=== PATIENT | female | born 1965 | race American Indian/Alaskan Native ===

== ENCOUNTER 2018-02-20 10:16 | Inpatient (IN) | payer MEDICARE ==
[2018-02-20 10:17] VITALS: BMI 40.7
[2018-02-20 11:31] LABS: ACETAMINOPHEN < 10.0 ug/mL (10.0-30.0); ALB/GLOB RATIO 1.1 (1.0-2.1); ALBUMIN 4.5 g/dL (3.5-5.0); ALT/SGPT 33 U/L (9-52); AST/SGOT 34 U/L (14-36); BLOOD UREA NITROGEN 14 mg/dL (7-17); CALCIUM 9.5 mg/dl (8.6-10.4); GFR NON-AFRICAN AMERICAN > 60; SALICYLATE < 1.0 mg/dL 1
--- NOTE | 2018-02-20 11:39 | C.PDOC ---
History Of Present Illness 52yo [place]ron[place] F PMH HTN, DM, CKD3, systemic lupus, asthma, fibromyalgia (mixed connective tissue dz), major depression, c/o 2 weeks of tearful behavior started having SI yesterday. Has had multiple SI in the past with attempts x2, last at beginning of 2017. Major stressor is medical problems since "new diagnosis every doctor visit". Is taking Rx as prescribed. Regularly sees Dr. South (retiring, switching to Dr. Akins), next appointment is next month. SocHx: quit cigs - 2012, denies ever EtOH, illicit drugs <Lyndsey Fernando - Last Filed: 02/20/18 16:50> History Per: Patient Modifying Factor(s): None Severity: Severe Associated Symptoms: Depression, Suicidal Thoughts. denies: Suicidal Plan <Lyndsey Fernando - Last Filed: 02/20/18 16:50> <Adiel Valderrama DO - Last Filed: 02/20/18 18:24> Time Seen by Provider: 02/20/18 11:35 Chief Complaint (Nursing): Psychiatric Evaluation Past Medical History - Medical History PMH: Depression, Fibromyalgia, Osteoporosis Denies: Diabetes, Hepatitis, HIV, HTN, Seizures, Sexually Transmitted Disease Family History: States: Unknown Family Hx - Social History Hx Tobacco Use: No Hx Alcohol Use: No Hx Substance Use: No - Immunization History Hx Tetanus Toxoid Vaccination: (unk) Hx Influenza Vaccination: Yes Hx Pneumococcal Vaccination: No <Lyndsey Fernando - Last Filed: 02/20/18 16:50> Vital Signs: Last Vital Signs Temp 98.6 F 02/20/18 10:51 Pulse 78 02/20/18 10:51 Resp 22 02/20/18 10:51 BP 120/66 02/20/18 10:51 Pulse Ox 99 02/20/18 10:51 <Adiel Valderrama DO - Last Filed: 02/20/18 18:24> Review Of Systems Except As Marked, All Systems Reviewed And Found Negative. Psych: Positive for: Anxiety, Depression, Suicidal ideation. Negative for: Withdrawal <Lyndsey Fernando - Last Filed: 02/20/18 16:50> Physical Exam - Physical Exam Appears: Unkempt, Agitated (uncontrollably crying) Skin: Dry, Pale Head: Atraumatic, Normacephalic Eye(s): bilateral: PERRL, EOMI, Other (injected from crying) Ear(s): Bilateral: Normal Nose: Normal Oral Mucosa: Dry Throat: Normal Neck: Normal Cardiovascular: Rhythm Regular, Rhythm Irregular, No Murmur Respiratory: Normal Breath Sounds Gastrointestinal/Abdominal: Normal Exam, Bowel Sounds, Soft, No Tenderness Pulses: Left Radial: Normal, Right Radial: Normal, Left Dorsalis Pedis: Normal, Right Dorsalis Pedis: Normal Neurological/Psych: Oriented x3, Eyes Open With Command Pain Response: Withdraws With Pain <Lyndsey Fernando - Last Filed: 02/20/18 16:50> ED Course And Treatment - Laboratory Results Result Diagrams: 02/20/18 11:08 02/20/18 11:08 <Lyndsey Fernando - Last Filed: 02/20/18 16:50> - Laboratory Results Result Diagrams: 02/20/18 11:08 02/20/18 11:08 <Adiel Valderrama DO - Last Filed: 02/20/18 18:24> Medical Decision Making Medical Decision Making: CBC, UDS, UA <Lyndsey Fernando - Last Filed: 02/20/18 16:50> Medical Decision Making: Patient is medically cleared for psychiatric evaluation. - Dr. Valderrama <Adiel Valderrama DO - Last Filed: 02/20/18 18:24> Disposition - Disposition Disposition Time: 14:00 <Lyndsey Fernando - Last Filed: 02/20/18 16:50> - Disposition Disposition Time: 13:00 <Adiel Valderrama DO - Last Filed: 02/20/18 18:24> - Disposition Disposition: HOSPITALIZED Condition: STABLE - Clinical Impression Clinical Impression: Major depressive disorder with current active episode - PA / FAGOT HEATER / Resident Statement NILTON has reviewed & agrees with the documentation as recorded. NILTON has examined the patient and agrees with the treatment plan. <Lyndsey Fernando - Last Filed: 02/20/18 16:50> - PA / FAGOT HEATER / Resident Statement NILTON has reviewed & agrees with the documentation as recorded. NILTON has examined the patient and agrees with the treatment plan. <Adiel Valderrama DO - Last Filed: 02/20/18 18:24>
[2018-02-20 12:05] LABS: BARBITURATES, UR NEGATIVE (NEGATIVE); BENZODIAZEPINES, UR NEGATIVE (NEGATIVE); OPIATES, UR NEGATIVE (NEGATIVE); PHENCYCLIDINE, UR NEGATIVE (NEGATIVE)
[2018-02-20 12:19] LABS: BASO % 0.7 % (0.0-2.0); EOS # 0.2 K/uL (0.0-0.7); HEMOGLOBIN 14.7 g/dL (11.0-16.0); LYMPH # 2.5 K/uL (1.0-4.3); MEAN CELL VOLUME 91.1 fL (81.0-99.0); MEAN CORPUSCULAR HEMOGLOBIN 30.9 pg (27.0-31.0); MEAN PLATELET VOLUME 9.9 fL (7.2-11.7); MONO # 0.5 K/uL (0.0-0.8); MONO % 10.6 % (0.0-10.0); NEUT # 1.8 K/uL (1.8-7.0); NEUT % 34.7 % (50.0-75.0); NRBC % 0.2 % (0.0-2.0); RBC 4.75 Mil/uL (3.80-5.20); RED CELL DISTRIBUTION WIDTH 12.9 % (11.5-14.5); WHITE BLOOD COUNT 5.1 K/uL (4.8-10.8)
[2018-02-20 12:32] LABS: SQUAMOUS EPITHIAL < 1 /hpf (0-5); URINE BACTERIA RARE (<OCC); URINE BILIRUBIN NEGATIVE (NEGATIVE); URINE BLOOD NEGATIVE (NEGATIVE); URINE CLARITY Clear (Clear); URINE COLOR Yellow (YELLOW); URINE GLUCOSE (UA) NORMAL (Normal); URINE LEUKOCYTE ESTERASE NEG Leu/uL (Negative); URINE PROTEIN NEGATIVE (NEGATIVE); URINE UROBILINOGEN NORMAL mg/dL (0.2-1.0)
[2018-02-20 14:01] VITALS: O2SAT 98
--- NOTE | 2018-02-20 14:44 | PCM.BM ---
<Dagoberto-PolancoGabby - Last Filed: 02/20/18 14:40> Treatment Plan Problems - Problems identified on initial assessmt Depression Date Initiated: 02/20/18 Time Initiated: 14:41 Assessment reference: NA Status: Active Treatment assets and liabiliti Patient Assests: cooperative, educated, self-reliant, cognitively intact, strong seymour Patient Liabilities: live alone, financial problems, poor support system - Milieu Protocol Maintain good personal hygiene: daily Encourage regular showers, daily Remind patient to perform daily oral care, daily Assist patient to perform ADL's Conduct patient checks and document Observation sheet: Q15 minutes Maintain personal safety: every shift Educate patient to report safety concerns to staff, every shift Monitor environment for contraband/sharps Medication safety: Monitor for expected outcome, potential side effects: every shift, Assess barriers to learning: every shift, Assess readiness for medication education: every shift <Arian Akins Ozzy - Last Filed: 02/24/18 19:07> - Diagnosis (1) Major depressive disorder, recurrent severe without psychotic features Status: Acute Interventions: 02/24/18 19:06 Assess/adjust medications daily and /or as needed See patient on an individual basis 7x/week to assess symptoms of depression Monitor for side effects & effectiveness of medications (2) Chronic post-traumatic stress disorder (PTSD) Status: Acute Interventions: 02/24/18 19:06 Assess/adjust medications daily and /or as needed See patient on an individual basis 7x/week to assess symptoms of depression Monitor for side effects & effectiveness of medications
[2018-02-20 16:07] VITALS: RESP 18
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
[2018-02-22 06:43] VITALS: TEMP 98.7
--- NOTE | 2018-02-22 19:12 | PCM.PYCHPN ---
Psychiatric Progress Note - Psychiatric Progress Note Patient seen today, length of contact: 15 minutes Patient Chief Complaint: I am feeling little better. Problems Identified/Issues Discussed: Patient seen, chart reviewed, case discussed with the staff. Issues related to illness and treatment were discussed with the patient and staff. Reported compliant with treatment with no adverse effect. Tolerating treatment very well. Patient reported feeling little better with the treatment. Calm and cooperative. Memory intact. Aftercare discussed with the patient. At the time of evaluation, patient was awake, alert and oriented x3, had no delusions, no auditory or visual hallucinations, no suicidal ideations or homicidal ideations. Medical Problems: Diabetes mellitus. Fibromyalgia. Lupus Mixed connective tissue disease. Stage II kidney disease. Diagnostic Results: Reviewed DSM 5 Symptoms Update: Some improvement with treatment from Medication Change: No Medical Record Reviewed: Yes Mental Status Examination - Cognitive Function Orientation: Person, Place, Situation, Time Memory: Intact Attention: WNL Concentration: WNL Association: WNL Fund of Knowledge: [facility] Decription of patient's judgement and insights: Fair - Mood Mood: Depressed - Affect Affect: Depressed - Speech Speech: Appropriate - Formal Thought Process Formal Thought Process: No Impairment Psychotic Thoughts and Behaviors: None - Suicidal Ideation Suicidal Ideation: No - Homicidal Ideation Homicidal Ideation: No Goal/Treatment Plan - Goal/Treatment Plan Need for Continued Stay: Remain at risks for inpatient hospitalization, Discharge may exacerbated symptoms, Severe functional impairment Progress Toward Problem(s) and Goals/Treatment Plan: Patient/staff education. Supportive therapy. Continue treatment as before. Patient will go back to [facility] for follow-up care with her psychiatrist after discharge from the hospital. Estimated Date of D/C: 02/26/18 - Smoking Cessation Smoking Cessation Initiated: No Reason for not providing: Patient does not smoke cigarettes.
[2018-02-23 15:40] VITALS: BP 154/83; PULSE 82
== END 2018-02-23 17:47 | disposition home or self-care (01) | DRG 885 ==
LOC: C.ER 10:16 → C.9E 12:46 → C.5E 14:03
PROC: GZ3ZZZZ Medication Management (ICD-10-PCS; principal; 2018-02-20)
PROC: GZHZZZZ Group Psychotherapy (ICD-10-PCS; 2018-02-20)
PROC: GZ56ZZZ Individual Psychotherapy, Supportive (ICD-10-PCS; 2018-02-20)
DX: F33.2 Major depressive disorder, recurrent severe without psychotic features (principal); R45.851 Suicidal ideations; F43.12 Post-traumatic stress disorder, chronic; M35.1 Other overlap syndromes; E11.22 Type 2 diabetes mellitus with diabetic chronic kidney disease; M32.9 Systemic lupus erythematosus, unspecified; N18.3 Chronic kidney disease, stage 3 (moderate); I12.9 Hypertensive chronic kidney disease with stage 1 through stage 4 chronic kidney disease, or unspecified chronic kidney disease; M79.7 Fibromyalgia; M81.0 Age-related osteoporosis without current pathological fracture; J45.909 Unspecified asthma, uncomplicated; Z87.891 Personal history of nicotine dependence